=== PATIENT | female | born 1975 | race Caucasian/White ===

== ENCOUNTER 2016-09-28 14:16 | Emergency (ER) | payer MEDICARE ==
[2016-09-28 14:54] VITALS: BP 129/77
[2016-09-28] MEDS ORDERED: Albuterol/Ipratropium NEB.SOL* Albuterol 2.5 MG/Ipratropium 0.5 MG 3 ML INH ONE (15:25)
--- NOTE | 2016-09-28 15:49 | RAD ---
HISTORY: Fever, cough, wheezing COMPARISONS: None VIEWS: 2: Frontal dual-energy and lateral views of the chest. FINDINGS: CARDIOMEDIASTINAL SILHOUETTE: The cardiomediastinal silhouette is normal. MELODY: The melody are normal. PLEURA: The costophrenic angles are sharp. No pleural abnormalities are noted. LUNG PARENCHYMA: The lungs are clear. ABDOMEN: The upper abdomen is clear. There is no subphrenic gas. BONES AND SOFT TISSUES: No bone or soft tissue abnormalities are noted. OTHER: None. IMPRESSION: NO ACTIVE CARDIOPULMONARY DISEASE.
--- NOTE | 2016-09-29 01:27 | UC ---
Rosa Mata SooYoung, scribed for Heavenly Hernandez MD on 09/28/16 at 1510 . Respiratory Complaint HPI - HPI Summary HPI Summary: A 41 y/o F presents to [facility] with ongoing cough and dyspnea for past eight days. Associated sx: fever, weakness, dizziness, decreased appetite. She notes her associated sx have resolved. Denies abd pain, rash. She's tried detox teas, OTC medicine with no relief. Pt is a smoker. Has a dog and cat at home. + discomfort with cough, but o/w denies chest pain. No discolored urine. No headache (other than sinus leslie) - History of Current Complaint Chief Complaint: UCRespiratory Stated Complaint: COUGH Hx Obtained From: Patient Hx Last Menstrual Period: 09/11/16 Onset/Duration: Lasting Days - 8 days, Still Present Severity Currently: Mild Pain Intensity: 1 Pain Scale Used: 0-10 Numeric Alleviating Factors: Nothing Associated Signs And Symptoms: Positive: Dyspnea, Fever, Dizziness - Allergies/Home Medications Allergies/Adverse Reactions: Allergies Allergy/AdvReac Type Severity Reaction Status Date / Time Codeine Allergy Rash And Verified 09/28/16 14:54 Itching Doxycycline Allergy Vomiting Verified 09/28/16 14:54 Latex Allergy Rash And Verified 09/28/16 14:54 Itching PMH/Surg Hx/FS Hx/Imm Hx Previously Healthy: No Other History Of: Hepatitis C - Surgical History Surgical History: Yes Surgery Procedure, Year, and Place: 2014 - hernia repair. multiple surgeries - Family History Known Family History: Positive: Hypertension, Other - Neg: Breast CA - Social History Occupation: Unemployed - OTHER Lives: With Family Alcohol Use: None Substance Use Type: None Smoking Status (MU): Current Every Day Smoker Type: Cigarettes Amount Used/How Often: 1 PPD Review of Systems Constitutional: Fever - resolved, Other - decreased appetite, resolved Skin: Negative Eyes: Negative ENT: Negative Respiratory: Cough Cardiovascular: Negative Gastrointestinal: Negative Genitourinary: Negative Motor: Negative Neurovascular: Negative Musculoskeletal: Negative Neurological: Weakness - and dizzyness, resolved Psychological: Negative All Other Systems Reviewed And Are Negative: Yes Physical Exam Triage Information Reviewed: Yes Appearance: No Pain Distress, Well-Nourished - sitting up, conversing easily and appropriately. Vital Signs: Initial Vital Signs Temp 98.2 F 09/28/16 14:50 Pulse 81 09/28/16 14:50 Resp 16 09/28/16 14:50 BP 129/77 09/28/16 14:50 Pulse Ox 97 09/28/16 14:50 Vital Signs Reviewed: Yes Eye Exam: Normal ENT: Positive: Pharyngeal erythema, TM dull, Other: - R TM + redness, rtxd. C/ w barotrauma. L TM ok. Neck exam: Normal Neck: Positive: Supple, Nontender Respiratory Exam: Other Respiratory: Positive: Chest non-tender, Wheezing Cardiovascular Exam: Normal Cardiovascular: Positive: RRR, No Murmur, Pulses Normal, Brisk Capillary Refill Musculoskeletal Exam: Normal Neurological Exam: Normal Psychological Exam: Normal Skin Exam: Normal - Additional Comments Appearance: Well-Nourished Eye Exam: Normal EARS: BILATERAL [place], RETRACTED. NO ERYTHEMA. Neck exam: Normal, no adenopathy appreciated Respiratory Exam: INSPIRATORY AND EXPIRATORY WHEEZES IN ALL CORRAL, SCATTERED RHONCHI Cardiovascular Exam: Normal Cardiovascular: Heart rate regular, good general skin color, good capillary refill Abdominal Exam: Normal Abdomen Description: Nontender, No organomegaly, Soft Bowel Sounds: Present Musculoskeletal Exam: Normal Musculoskeletal: Strength Intact Neurological Exam: Normal: nonfocal, grossly intact Psychological Exam: Normal: conversing easily and appropriately Skin Exam: Normal: no visible or reported rash UC Diagnostic Evaluation - Laboratory O2 Sat by Pulse Oximetry: 97 - Radiology Xray Interpretation: No Acute Changes - IMPRESSION: No active cardiopulmonary dz. Radiology Interpretation Completed By: Radiologist Re-Evaluation - Re-Evaluation 1 Re-Evaluation Time: 16:02 Change: Improved Comment: Discussing XR results with pt. Feeling better. Discussed D/C plans with pt. Pt voiced understanding. Respiratory Course/Dx - Course Course Of Treatment: Better s/p Duoneb. Chest xray ok. see report. Will f/u pcp, hopefully this week. Questions answered as posed. - Differential Dx/Diagnosis Provider Diagnoses: Acute bronchitis with wheezing Discharge - Discharge Plan Condition: Stable Disposition: HOME Prescriptions: Albuterol HFA INHALER* [Ventolin HFA Inhaler*] 1 - 2 puff INH Q4H PRN #1 mdi PRN Reason: Wheezing Azithromyxin DEL (NF) [Z-Del (Zithromax) 250 mg tabs #6] 2 tab PO .TODAY, THEN 1 DAILY #6 tab Methylprednisolone [Medrol Dosepak 4 MG*] 4 mg PO .SEE DEL INSTRUCTION #1 packet Patient Education Materials: Albuterol (By breathing), Azithromycin (By mouth) , Methylprednisolone (By mouth), Acute Bronchitis (ED) Referrals: Bethel Stephenson MD [Primary Care Provider] - 1 Week Additional Instructions: Please follow up with your primary care provider -- for next week to have your lungs rechecked. Seek medical attention for worsening problems in the meantime. The documentation as recorded by the Rosa moore SooYoung accurately reflects the service I personally performed and the decisions made by me, Heavenly Hernandez MD.
== END 2016-09-28 16:18 | disposition home or self-care (01) ==
LOC: UCEAST 14:16
DX: J20.9 Acute bronchitis, unspecified (principal); Z88.5 Allergy status to narcotic agent; Z88.1 Allergy status to other antibiotic agents; F17.210 Nicotine dependence, cigarettes, uncomplicated
CPT/HCPCS: 71020; 99212; A9270-GY; G0463